=== PATIENT | female | born 1950 | race Caucasian/White ===

== ENCOUNTER 2018-05-15 12:32 | Emergency (ER) | payer OTHER, MEDICARE ==
[~2018-05-15] VITALS: Ht 165.1 cm; Wt 74.8 kg
[2018-05-15] MEDS ORDERED: ZIAC 10-6.25 M1 EACH PO (12:47)
[2018-05-15] MEDS ORDERED: CETIRIZINE HCL5 MG PO (12:47)
[2018-05-15] MEDS ORDERED: ZOCOR20 MG PO (12:48)
[2018-05-15] MEDS ORDERED: TIROSINT13 MCG PO (12:48)
[2018-05-15] MEDS ORDERED: UNICOMPLEX M TA1 TA1 PO (12:48)
[2018-05-15] MEDS ORDERED: VITAMIN A10000 UNI3 PO (12:49)
[2018-05-15] MEDS ORDERED: VITAMIN E400 UNIT PO (12:49)
[2018-05-15] MEDS ORDERED: MOBIC15 MG PO (13:30)
[2018-05-15 13:46] VITALS: BP 137/72
== END 2018-05-15 13:47 | disposition home or self-care (01) ==
LOC: ER 12:32
DX: S93.602A Unspecified sprain of left foot, initial encounter (principal); Z91.040 Latex allergy status; Z88.2 Allergy status to sulfonamides; Z88.8 Allergy status to other drugs, medicaments and biological substances; W18.39XA Other fall on same level, initial encounter; Y92.89 Other specified places as the place of occurrence of the external cause; Y93.89 Activity, other specified; Y99.8 Other external cause status

== ENCOUNTER 2018-08-10 16:12 | Emergency (ER) | payer OTHER, MEDICARE ==
[~2018-08-10] VITALS: Ht 165.1 cm; Wt 86.2 kg
[~2018-08-10 16:12] MED LIST: CETIRIZINE HCL5 MG PO; MOBIC15 MG PO; TIROSINT13 MCG PO; UNICOMPLEX M TA1 TA1 PO; VITAMIN A10000 UNI3 PO; VITAMIN E400 UNIT PO; ZIAC 10-6.25 M1 EACH PO; ZOCOR20 MG PO
[2018-08-10] MEDS ORDERED: PROBIOTIC1 EAC1 PO (16:46)
[2018-08-10] MEDS ORDERED: VITAMIN D1000 UNI1 PO (16:46)
[2018-08-10 17:55] VITALS: BP 133/64
[2018-08-10] MEDS ORDERED: DOXYCYCLINE 10100 MG PO (17:58)
[2018-08-10] MEDS ORDERED: NORCO 5-325 TA1 EACH PO (18:04)
== END 2018-08-10 18:21 | disposition home or self-care (01) ==
LOC: ER 16:12
DX: L03.115 Cellulitis of right lower limb (principal); Z90.49 Acquired absence of other specified parts of digestive tract; Z90.710 Acquired absence of both cervix and uterus; Z88.2 Allergy status to sulfonamides; Z91.040 Latex allergy status; Z88.8 Allergy status to other drugs, medicaments and biological substances